=== PATIENT | female | born 1965 | race Caucasian/White ===

== ENCOUNTER 2016-11-27 19:32 | Emergency (ER) | payer MEDICAID ==
[~2016-11-27] VITALS: Ht 167.6 cm; Wt 91.0 kg
[2016-11-27 19:50] VITALS: BP 140/88
== END 2016-11-27 22:30 | disposition left against medical advice (07) ==
LOC: ER 19:32
DX: M79.89 Other specified soft tissue disorders (principal); Z53.21 Procedure and treatment not carried out due to patient leaving prior to being seen by health care provider

== ENCOUNTER 2016-11-30 21:20 | Emergency (ER) | payer MEDICAID ==
[~2016-11-30] VITALS: Ht 157.5 cm; Wt 92.9 kg
[2016-12-01] MEDS ORDERED: HYDROCODONE/ACETAMINOPHEN 5/325MG TABLET PO ONE (00:45)
[2016-12-01 02:10] VITALS: BP 143/68
== END 2016-12-01 02:38 | disposition home or self-care (01) ==
LOC: ER 21:46
DX: S83.91XA Sprain of unspecified site of right knee, initial encounter (principal); M17.11 Unilateral primary osteoarthritis, right knee; Z98.890 Other specified postprocedural states; X58.XXXA Exposure to other specified factors, initial encounter; Y93.89 Activity, other specified; Y92.018 Other place in single-family (private) house as the place of occurrence of the external cause
CPT/HCPCS: 73562; 93971; 99284

== ENCOUNTER 2017-01-15 20:33 | Emergency (ER) | payer MEDICAID ==
[~2017-01-15] VITALS: Ht 162.6 cm; Wt 79.0 kg
[2017-01-15] MEDS ORDERED: SODIUM CHLORIDE 0.9% 1,000 ML IV ONE ×2 (22:42→23:50)
[2017-01-15] MEDS ORDERED: MORPHINE SULFATE 4 MG/ML CPJ (NOT FOR IM USE) IV STA (22:42)
[2017-01-15] MEDS ORDERED: ACETAMINOPHEN 325MG TABLET PO STA (22:42)
[2017-01-15] MEDS ORDERED: ONDANSETRON HCL 4MG/2ML VIAL IV STA (22:42)
[2017-01-15] MEDS ORDERED: LEVOFLOXACIN 750MG PREMIX 150 ML IV ONE (22:45)
[2017-01-15] MEDS ORDERED: MORPHINE SULFATE 10 MG/ML CPJ IV NR (22:58)
[2017-01-15 23:16] LABS: BASOPHILS % 0.9 % (0.0-2.0); EOSINOPHILS % 0.2 % (0.0-5.0); HEMATOCRIT. 40.2 % (36.0-48.0); LYMPHOCYTES % 17.8 % (20.0-50.0); MEAN CORPUSCULAR HEMOGLOBIN 29.7 pg (28.0-32.0); MEAN CORPUSCULAR VOLUME 85.4 fL (81.0-99.0); MEAN PLATELET VOLUME 8.1 fl (7.4-10.4); MONOCYTES % 4.2 % (2.0-8.0); NEUTROPHILS % 76.9 % (40.0-76.0); PLATELET 279 x1000/uL (130-400); RED BLOOD CELL COUNT 4.71 mill/uL (4.2-5.4)
[2017-01-15 23:19] LABS: CHLORIDE 104 mEq/L (98-107)
[2017-01-15 23:22] LABS: PROTHROMBIN TIME 10.7 sec (9.4-11.6)
[2017-01-15 23:23] LABS: CARBON DIOXIDE 27 mEq/L (21-32); ETHANOL BLOOD < 10 mg/dL
[2017-01-15 23:29] LABS: TROPONIN I < 0.02 ng/mL (0.00-0.04)
[2017-01-16 00:17] LABS: CLARITY URINE CLEAR (CLEAR); COLOR URINE YELLOW (YELLOW); GLUCOSE URINE NEGATIVE (NEGATIVE); KETONES URINE NEGATIVE (NEGATIVE); LEUKOCYTE ESTERASE URINE NEGATIVE (NEGATIVE); NITRITE URINE NEGATIVE (NEGATIVE); OCCULT BLOOD URINE 2+ (NEGATIVE); PH URINE 6.5 (4.5-8.0); PROTEIN URINE NEGATIVE (NEGATIVE); SPECIFIC GRAVITY URINE 1.019 (1.005-1.030)
[2017-01-16 00:33] LABS: *AMPHETAMINES SCREEN URINE NEGATIVE (NEGATIVE); *BARBITURATES SCREEN URINE NEGATIVE (NEGATIVE); *BENZODIAZEPINES SCREEN URINE NEGATIVE (NEGATIVE); *COCAINE SCREEN URINE NEGATIVE (NEGATIVE); CANNABINOID URINE SCREEN NEGATIVE (NEGATIVE); METHADONE URINE SCREEN NEGATIVE (NEGATIVE); OPIATES URINE SCREEN NEGATIVE (NEGATIVE); PHENCYCLIDINE URINE SCREEN NEGATIVE (NEGATIVE)
[2017-01-16 02:35] VITALS: BP 121/61
== END 2017-01-16 02:37 | disposition home or self-care (01) ==
LOC: ER 20:43 → CANBEDREQ 01-16 02:42
DX: B34.9 Viral infection, unspecified (principal); Z98.890 Other specified postprocedural states
CPT/HCPCS: 36415; 71010; 74176; 80053; 80305; 81001; 83605; 83690; 83880; 84484; 85025; 85610; 87040; 87086; 93005; 96361; 96365; 96375; 99285; G0482; J1956; J2270; J2405; J7030; Z7610

== ENCOUNTER 2017-09-08 10:42 | Emergency (ER) | payer MEDICAID ==
[~2017-09-08] VITALS: Ht 160 cm; Wt 90.0 kg
[2017-09-08] MEDS ORDERED: METHOCARBAMOL 500MG TABLET PO ONE ×2 (12:00→16:45)
[2017-09-08] MEDS ORDERED: ACETAMINOPHEN WITH CODEINE 300/30MG TABLET PO ONE ×2 (12:00→16:45)
[2017-09-08 18:01] VITALS: BP 138/87
== END 2017-09-08 18:01 | disposition home or self-care (01) ==
LOC: ER 10:42
DX: S00.03XA Contusion of scalp, initial encounter (principal); S83.91XA Sprain of unspecified site of right knee, initial encounter; M54.2 Cervicalgia; R42 Dizziness and giddiness; W01.198A Fall on same level from slipping, tripping and stumbling with subsequent striking against other object, initial encounter; Y93.89 Activity, other specified; Y92.512 Supermarket, store or market as the place of occurrence of the external cause
CPT/HCPCS: 70450; 72125; 73562; 93005; 99284

== ENCOUNTER 2017-12-31 18:52 | Emergency (ER) | payer MEDICAID ==
[~2017-12-31] VITALS: Ht 152.4 cm; Wt 91.0 kg
[2017-12-31] MEDS ORDERED: IBUPROFEN 800MG TABLET PO ONE (21:15)
[2017-12-31] MEDS ORDERED: HYDROCODONE/ACETAMINOPHEN 5/325MG TABLET PO ONE (21:15)
[2017-12-31 23:37] VITALS: BP 135/82
== END 2017-12-31 23:49 | disposition home or self-care (01) ==
LOC: ER 18:52
DX: S80.01XA Contusion of right knee, initial encounter (principal); M17.11 Unilateral primary osteoarthritis, right knee; M85.88 Other specified disorders of bone density and structure, other site; W01.0XXA Fall on same level from slipping, tripping and stumbling without subsequent striking against object, initial encounter; Y93.89 Activity, other specified; Y92.9 Unspecified place or not applicable
CPT/HCPCS: 73560; 99284

== ENCOUNTER 2018-02-03 22:08 | Emergency (ER) | payer MEDICAID ==
[~2018-02-03] VITALS: Ht 154.9 cm; Wt 95.0 kg
[2018-02-03] MEDS ORDERED: KETOROLAC 60MG/2ML VIAL IM ONE (23:45)
[2018-02-03] MEDS ORDERED: CYCLOBENZAPRINE 10MG TABLET PO ONE (23:45)
[2018-02-04 00:11] LABS: BASOPHILS % 1.9 % (0.0-2.0); EOSINOPHILS % 1.5 % (0.0-5.0); HEMATOCRIT. 37.2 % (36.0-48.0); HEMOGLOBIN. 12.5 g/dL (12.0-16.0); LYMPHOCYTES % 36.6 % (20.0-50.0); MEAN CORPUSCULAR HEMOGLOBIN 29.2 pg (28.0-32.0); MEAN CORPUSCULAR VOLUME 86.7 fL (81.0-99.0); MEAN PLATELET VOLUME 7.8 fl (7.4-10.4); MONOCYTES % 5.9 % (2.0-8.0); NEUTROPHILS % 54.1 % (40.0-76.0); PLATELET 340 x1000/uL (130-400); RED BLOOD CELL COUNT 4.29 mill/uL (4.2-5.4); RED CELL DISTRIBUTION WIDTH 13.4 % (11.6-14.6)
[2018-02-04 00:17] LABS: CHLORIDE 106 mEq/L (98-107)
[2018-02-04 01:05] LABS: CLARITY URINE CLEAR (CLEAR); COLOR URINE YELLOW (YELLOW); KETONES URINE NEGATIVE (NEGATIVE); LEUKOCYTE ESTERASE URINE 1+ (NEGATIVE); NITRITE URINE NEGATIVE (NEGATIVE); OCCULT BLOOD URINE 2+ (NEGATIVE); PROTEIN URINE NEGATIVE (NEGATIVE); SPECIFIC GRAVITY URINE 1.018 (1.005-1.030)
[2018-02-04 02:22] VITALS: BP 125/56
== END 2018-02-04 02:21 | disposition home or self-care (01) ==
LOC: ER 22:08
DX: M54.9 Dorsalgia, unspecified (principal); N39.0 Urinary tract infection, site not specified; Z90.710 Acquired absence of both cervix and uterus
CPT/HCPCS: 36415; 80048; 81003; 85025; 96372; 99283; J1885

== ENCOUNTER 2018-11-26 18:58 | Emergency (ER) | payer MEDICAID ==
[~2018-11-26] VITALS: Ht 157.5 cm; Wt 89.0 kg
[2018-11-26 19:15] VITALS: BP 131/84
== END 2018-11-26 22:46 | disposition left against medical advice (07) ==
LOC: ER 18:58
DX: Z53.21 Procedure and treatment not carried out due to patient leaving prior to being seen by health care provider (principal)